=== PATIENT | male | born 1995 | race Asian ===

== ENCOUNTER 2020-12-03 15:27 | Emergency (ER) | payer BC ==
[~2020-12-03] VITALS: Ht 188 cm; Wt 113.4 kg
--- NOTE | 2020-12-03 15:38 | NUR ---
[email or web address], medical screening exam in progress
--- NOTE | 2020-12-03 16:00 | NUR ---
Patient is resting comfortably on gurney while using his personal electronic device, NAD.
[2020-12-03] MEDS ORDERED: IBUP-1953 PO (16:16)
--- NOTE | 2020-12-03 16:33 | NUR ---
Crutches dispensed. Pt instructed on proper use of crutches. Patient able to demonstrate correct use of crutches.
--- NOTE | 2020-12-03 16:34 | NUR ---
Patient discharged to home in stable condition via wheelchair. Written and verbal after care instructions given. Patient verbalizes understanding & compliance of instructions. Stressed follow up with ortho doctor & his primary doctor or return to ER for worsening s/s.
== END 2020-12-03 16:37 | disposition home or self-care (01) ==
LOC: ER 15:29
DX: M25.561 Pain in right knee (principal); M25.461 Effusion, right knee
CPT/HCPCS: A4663